=== PATIENT | female | born 1990 | race Caucasian/White ===

== ENCOUNTER → 2016-03-08 | Outpatient (CLI) | payer BC ==
[~2016-03-08] MED LIST: HYDR1INJ12; PRENTAB26 PO
== END | disposition home or self-care (01) ==
LOC: C.PAPS 14:21
PROVIDERS: ATTEND Obstetrics & Gynecology
DX: Z01.419 Encounter for gynecological examination (general) (routine) without abnormal findings (principal)

== ENCOUNTER → 2016-04-26 | Outpatient (CLI) | payer BC ==
[2016-04-26 16:27] LABS: URINE APPEARANCE CLEAR (CLEAR); URINE BILIRUBIN NEG (NEG); URINE COLOR YELLOW; URINE EPITHELIAL CELL AUTO 20-30 /lpf (0-5); URINE NITRITE NEG (NEG); URINE PH 6.5 (4.5-7.5); URINE SPECIFIC GRAVITY 1.005 (1.000-1.030); UROBILINOGEN NEG (NEG)
[2016-04-26 16:29] LABS: MANUAL MICROSCOPIC REQUIRED? NO; REVIEW REQ? NO
== END | disposition home or self-care (01) ==
LOC: C.LABSPEC 15:46
PROVIDERS: ATTEND Obstetrics & Gynecology
DX: O09.219 Supervision of pregnancy with history of pre-term labor, unspecified trimester (principal); Z3A.00 Weeks of gestation of pregnancy not specified

== ENCOUNTER → 2016-05-03 | Outpatient (CLI) | payer BC ==
[2016-05-06 11:26] LABS: CHLAMYDIA TRACH RNA*** NOT DETECTED (NOT DETECTED); GC (NEIS GONORRHOEAE)RNA** NOT DETECTED (NOT DETECTED)
== END | disposition home or self-care (01) ==
LOC: C.LABSPEC 14:17
PROVIDERS: ATTEND Obstetrics & Gynecology
DX: O09.219 Supervision of pregnancy with history of pre-term labor, unspecified trimester (principal)

== ENCOUNTER → 2016-09-17 | Outpatient (CLI) | payer BC ==
[2016-09-17 12:52] LABS: URINE APPEARANCE CLEAR (CLEAR); URINE BILIRUBIN NEG (NEG); URINE COLOR YELLOW; URINE EPITHELIAL CELL AUTO >30 /lpf (0-5); URINE NITRITE NEG (NEG); URINE SPECIFIC GRAVITY 1.008 (1.000-1.030); UROBILINOGEN NEG (NEG)
[2016-09-17 13:01] LABS: MANUAL MICROSCOPIC REQUIRED? NO; REVIEW REQ? YES
== END | disposition home or self-care (01) ==
LOC: C.LABSPEC 11:25
PROVIDERS: ATTEND Obstetrics & Gynecology
DX: O09.212 Supervision of pregnancy with history of pre-term labor, second trimester (principal)

== ENCOUNTER → 2016-11-13 | Outpatient (CLI) | payer BC | END | disposition home or self-care (01) | LOC: C.LABSPEC 11:02 | PROVIDERS: ATTEND Obstetrics & Gynecology | DX: O24.410 Gestational diabetes mellitus in pregnancy, diet controlled (principal) ==

== ENCOUNTER 2016-11-16 20:36 | Inpatient (IN) | payer BC ==
[~2016-11-16] VITALS: Ht 162.6 cm; Wt 70.0 kg
[2016-11-16 22:07] VITALS: Ht 162.6 cm; Wt 70.0 kg
[2016-11-16] MEDS ORDERED: PRENTAB26 PO (22:09)
[2016-11-16] MEDS ORDERED: HYDR1INJ12 (22:10)
[2016-11-16] MEDS ORDERED: LACTATED RINGER'S 1000ML 1,000 ML IV SCH (23:16)
[2016-11-16] MEDS ORDERED: LACTATED RINGER'S 1000ML 1,000 ML IV PRN (23:16)
[2016-11-16] MEDS ORDERED: LACTATED RINGER'S 1000ML 500 ML IV PRN (23:18)
[2016-11-16] MEDS ORDERED: BETAMETH SOD PHOS/ACETATE IA 6 MG/ML IM ONE (23:30)
[2016-11-16] MEDS ORDERED: OXYTOCIN 30 UNITS/500ML NSS IV PRN (23:30)
[2016-11-16 23:41] LABS: BASO % 0.2 %; BASO ABS # 0.02 K/uL (0-0.2); COMPLETE YES; HEMATOCRIT 35.7 % (37-47); IG% 0.7 %; LYMPH % 22.9 %; LYMPH ABS # 2.01 K/uL (1.2-3.4); MEAN CELL VOLUME 98.3 fL (80-100); MEAN CORPUSCULAR HEMOGLOBIN 33.9 pg (25-34); MEAN CORPUSCULAR HGB CONC 34.5 g/dl (32-36); MEAN PLATELET VOLUME 9.5 fL (7.4-10.4); MONO % 7.1 %; NEUT % 67.1 %; PLATELET COUNT 231 K/uL (130-400); RED BLOOD COUNT 3.63 M/uL (4.2-5.4); WHITE BLOOD COUNT 8.79 K/uL (4.8-10.8)
[2016-11-17 00:41] LABS: URINE APPEARANCE CLOUDY (CLEAR); URINE BILIRUBIN NEG (NEG); URINE COLOR YELLOW; URINE NITRITE NEG (NEG); URINE SPECIFIC GRAVITY 1.014 (1.000-1.030); UROBILINOGEN NEG (NEG)
[2016-11-17 00:44] LABS: MANUAL MICROSCOPIC REQUIRED? NO; REVIEW REQ? NO
[2016-11-17] MEDS ORDERED: FENTANYL 2MCG/ML ROPIV 1.25MG/ML 100ML BAG EPI ONE (06:10)
[2016-11-17] MEDS ORDERED: BUPIVACAINE 0.25% 30 ML VIAL ONE (06:10)
[2016-11-17] MEDS ORDERED: EpHEDrine SULFATE INJ 50 MG/ML AMP ONE (06:10)
[2016-11-17] MEDS ORDERED: FENTANYL CITRATE INJ 50 MCG/1 ML 2 ML VIAL ONE (06:11)
[2016-11-17] MEDS ORDERED: LACTATED RINGER'S 1000ML 500 ML IV PRN (06:56)
[2016-11-17] MEDS ORDERED: NALOXONE HCL INJ 1 MG in SODIUM CHLORIDE 0.9% 1000ML 1,000 ML IV PRN (06:56)
[2016-11-17] MEDS ORDERED: DiphenhydrAMINE HCL 50 MG/ML VIAL IV PRN (07:00)
[2016-11-17] MEDS ORDERED: ONDANSETRON INJ 2 MG/ML 2 ML VIAL IV PRN (07:00)
[2016-11-17] MEDS ORDERED: FENTANYL 2MCG/ML ROPIV 1.25MG/ML 100ML BAG EPI PRN (07:00)
[2016-11-17] MEDS ORDERED: NALBUPHINE HCL INJ 10 MG/ML AMP IV PRN (07:00)
[2016-11-17] MEDS ORDERED: EpHEDrine SULFATE INJ 50 MG/ML AMP IV PRN (07:00)
[2016-11-17] MEDS ORDERED: NALOXONE HCL INJ 0.4 MG/1 ML VIAL/CARP IV PRN (07:00)
--- NOTE | 2016-11-17 09:13 | Vaginal Delivery Summary ---
Vaginal Delivery Summary The patient dilated to complete and pushed over 1 contraction to deliver a viable female Apgars 8 and 9 via over an intact perineum. Mouth and nose bulb suctioned at the perineum and loose nuchal cord 1 reduced. Shoulders and body delivered with ease. vigorous and crying at . The cord was clamped at 30 seconds of life and then to maternal abdomen where the cord was doubly clamped and cut. Placenta delivered spontaneously and intact, 3 vessel cord. Hemostasis achieved with dilute Pitocin and uterine massage. Cervix and sulci intact. EBL 300 cc's. Mother and baby stable in recovery.
[2016-11-17] MEDS ORDERED: BENZOCAINE 20% AER SPR 82.5 GM CAN EXT PRN (09:15)
[2016-11-17] MEDS ORDERED: MISOPROSTOL 200 MCG TAB PR SCH (09:15)
[2016-11-17] MEDS ORDERED: DIPHTHERIA/TETANUS/PERTUSSIS 0.5 ML SYR/VIAL IM. ONE (09:15)
[2016-11-17] MEDS ORDERED: OXYTOCIN 30 UNITS/500ML NSS IV PRN (09:15)
[2016-11-17] MEDS ORDERED: SUPERCREAM 0.870 % 15GM JAR EXT PRN (09:15)
[2016-11-17] MEDS ORDERED: ACETAMINOPHEN/CODEINE 300/30MG TAB PO PRN ×2 (09:15)
[2016-11-17] MEDS ORDERED: IBUPROFEN 600 MG TAB PO PRN (09:15)
[2016-11-17] MEDS ORDERED: LANOLIN OINT EXT PRN ×2 (09:15)
[2016-11-17] MEDS ORDERED: ACETAMINOPHEN 325 MG TAB PO PRN (09:15)
[2016-11-17] MEDS ORDERED: HYDROCORTISONE ACETATE 25 MG SUPP PR PRN (09:15)
--- NOTE | 2016-11-17 09:37 | Anesthesia Procedure Note ---
Anesthesia Epidural Removal Nt Date & Time Nov 17, 2016 at 09:37 Vital Signs Pain Intensity: 0.0 Notes Mental Status: alert / awake / arousable, participated in evaluation Nausea / Vomiting: adequately controlled Pain: adequately controlled Airway Patency, RR, SpO2: stable & adequate BP & HR: stable & adequate Hydration State: stable & adequate Neuraxial Anesthesia: was administered Anesthetic Complications: no major complications apparent, pt satisfied with anesthetic care Epidural: removed without complications, with tip intact
[2016-11-17] MEDS ORDERED: OXYTOCIN INJ 20 UNITS in LACTATED RINGER'S 1000ML 1,000 ML IV SCH (10:00)
[2016-11-17 11:30] VITALS: BP 120/64; PULSE 83; TEMP 36.9; O2SAT 96
[2016-11-17 15:30] VITALS: BP 109/76; PULSE 71; TEMP 36.8
[2016-11-17 19:45] VITALS: BP 115/74; PULSE 68; TEMP 36.6
[2016-11-17] MEDS: DOCUSATE SODIUM 100 MG CAP PO SCH (20:00)
[2016-11-17 23:10] VITALS: BP 103/65; PULSE 75; TEMP 37; O2SAT 96
[2016-11-18 03:15] VITALS: BP 103/68; PULSE 80; TEMP 36.9
--- NOTE | 2016-11-18 06:27 | Progress Note ---
Subjective Nov 18, 2016. Subjective conversation w/ patient, physical exam, chart review, lab review Ambulation: ambulating normally Voiding: no voiding problems Passing Gas: Yes Diet Tolerance: Regular Diet Lochia: Small Feeding Type: Breast Feeding Pain: Mild low abd pain and cramping Comment: Found pt awake, sitting up in bed, smiling, says she feels good, denies overnight events, and denies acute concerns. Review of Systems Constitutional: No fever, No chills Respiratory: No cough, No shortness of breath Cardiac: No chest pain, No edema Abdomen: No nausea, No vomiting, No diarrhea Female : No dysuria Objective Vital Signs Date Time Temp Pulse Resp B/P (MAP) Pulse Ox O2 Delivery O2 Flow Rate FiO2 11/18/16 03:15 36.9 80 18 103/68 (80) Room Air 11/17/16 23:10 37.0 75 18 103/65 (78) 96 Room Air 11/17/16 23:10 96 Room Air 11/17/16 19:45 36.6 68 18 115/74 (88) Room Air 11/17/16 15:30 Room Air 11/17/16 15:30 36.8 71 18 109/76 (87) Room Air 11/17/16 11:30 36.9 83 18 120/64 (82) 96 Room Air Physical Exam General Appearance: WELL-APPEARING, WD/WN, NO APPARENT DISTRESS Respiratory/Chest: lungs clear, normal breath sounds Cardiovascular: regular rate, rhythm, no edema, no murmur Abdomen: normal bowel sounds, non tender, soft Fundus: Firm, Non-Tender, Relation to Umbilicus (one down) Extremities: normal range of motion, no pedal edema, no calf tenderness Laboratory Results Last 24 Hours Test 11/17/16 07:01 Bedside Glucose 126 mg/dl Assessment and Plan Post- Day#: 1 Continue Routine Care: 26F s/p vaginal delivery, now PPD #1. - Blood type AB positive. GBS negative. Rubella immune. - Vital signs reviewed and stable. - Pain controlled without PO meds thus far. - No leg swelling or tenderness on calf palpation. Encourage ambulation. - Encourage breast feeding. - Hemoglobin pre-delivery 12.3. Bleeding has improved. Continue to monitor clinically. - Continue routine post-vaginal delivery care. - Pt agreed with above plan, all current questions answered. Diego Lyle MD, PGY1 Highway Commissioner Physician Supervision Note: I was present with Dr. Lyle during the history and exam. I discussed the case with the resident and agree with the findings and plan as documented in the note. Any exceptions or clarifications are listed here: no complaints. likely desires to go home. f/u 6 wks reviewed, instructions reviewed. Documented By: Tala Farley Resident Tracking Resident Involvement: Resident Care Provided Care Provided: OB Delivery (OB rounds)
[2016-11-18 07:20] VITALS: BP 101/66; PULSE 70; TEMP 36.6; O2SAT 98
--- NOTE | 2016-11-18 07:47 | Discharge Instructions ---
Discharge Instructions Date of Service Nov 18, 2016. Admission Reason for Admission: 36 Weeks Gestation Of Discharge Discharge Diagnosis / Problem: after delivery Discharge Goals Goal(s): Routine recovery after delivery Medications Continue Dispensed Medications: supercream, dermaplast, tucks, lansinoh Activity Recommendations Activity Limitations: as noted below . Instructions / Follow-Up Instructions / Follow-Up ACTIVITY RECOMMENDATIONS: * Gradual return to full activity over the next 2-3 weeks. * No lifting - nothing heavier than baby over the next 2-3 weeks. * Do not engage in vigorous exercise, sexual activity or sports until cleared by your physician. * Do not drive or operate any motorized equipment until cleared by your physician. * You may shower/bathe daily. MEDICATIONS: For discomfort or pain, you may use Acetaminophen (Tylenol), Ibuprofen (Advil), or Naproxen (Aleve) following the package directions. For constipation you may use Colace following the package directions. BREAST CARE: If you are not breast feeding: * Wear a supportive bra 24 hours a day for one to two weeks. * Avoid stimulating your breasts and nipples as much as possible during the first few weeks after delivery. * When taking a shower, have the warm water hit your back, not breasts. * When your breasts feel full, apply ice packs. Usually three to four times a day helps ease the discomfort. * Take a mild pain medication (Tylenol / Motrin) when you are uncomfortable. If breast feeding: * Use breast milk to lubricate nipples. Lansinoh cream may be used for sore nipples. You do not need to remove cream prior to breast feeding. If using a different brand of cream, check the label for directions regarding removal of cream prior to nursing. * Wear a supportive bra. * If having problems with breasts or breast feeding, call a integrity consultant or your health care provider. EPISIOTOMY CARE: After delivery, if you have an episiotomy (stitches), the following steps will ease discomfort and aid healing. * For the first 24 hours after delivery, place ice packs next to your episiotomy to help reduce swelling. * After the first 24 hour-period, sitz baths, either portable or in the tub, are suggested. A shower with a shower arm sprayed over the episiotomy may be comforting. * Milly care should be done after each voiding and bowel movement. Squirt warm water from a plastic bottle over the perineum (region of the body between the anus and urinary opening) and pat dry. * Use Dermoplast to ease discomfort. Shake container. [place] directly over the episiotomy. Place a Tucks on a clean sanitary pad next to your episiotomy. SPECIAL CARE INSTRUCTIONS: When you are discharged from the hospital, it is important for you to follow the instructions listed below: * During the first week at home, you should be able to care for yourself and your baby. In addition, the usual light household activities are encouraged. * Limit your activities to the way you feel. Do not try to clean the house or move furniture. Be sensible. * If you actively engage in sports and have done so up until the time of your delivery, you may resume these activities as soon as you feel able. This may take up to one month or even longer. Use good judgment. * Continue to take your vitamins for at least six weeks after the of your baby. * Your diet need not be limited unless you were on a special diet before your delivery. Breast-feeding mothers need around 2500 calories per day and at least 64-80 ounces of fluid per day (8 to 10 glasses). * You should eat foods from the four major food groups. Crash diets or fad diets are to be avoided. Eating lean meats, fresh fruits and vegetables, low-fat dairy products, high fiber foods and a regular exercise program, will help you get back to your pre- weight without putting your health at risk. * Constipation is sometimes a problem after delivery. Take a mild laxative as needed. If breast feeding, Milk of Magnesia is acceptable to use. You may use a suppository or Fleets enema if no episiotomy. * A daily shower or tub bath is suggested. Be sure to thoroughly and gently dry the perineum. * A bloody vaginal discharge will usually continue until around four weeks post . A small amount of bleeding may continue for as long as six weeks. Vaginal discharge changes from the bright red bleeding after delivery to pink then brownish and finally yellowish-pink before becoming white and disappearing. * Bleeding may increase with activity. Your first period may come in 4-8 weeks. If you are breast feeding, your period may be delayed even longer. * [place] (sex) can begin whenever both you and your partner feel comfortable and do not have any form of genital infection. It is recommended that you wait at least six weeks for internal and external healing to occur. If you have questions, please talk to your health care practitioner. A condom should be used to prevent infection and . * Foreplay, gentle intercourse and lubrication is very important the first several times to prevent pain. A water-based lubricant such as K-Y jelly or Astroglide may be used. * If you have RH negative blood and your baby is RH positive, you will receive RHOGAM by injection prior to discharge. The nurse will give you a card to keep with you that has the date and place that you received RHOGAM after delivery. * During your care, you had a Rubella screen done to check for the presence of rubella antibodies in your blood. If your test was negative, you will receive a Rubella vaccine prior to discharge. This vaccine may cause a fever, soreness at the injection site and flu-like symptoms. If these symptoms persist, notify your health care practitioner. is not advised for one month after a Rubella vaccine. * Verbalizes understanding of car seat law as reviewed with patient nursing. * Car Seat hand-out given and reviewed with patient by nursing. * Shaken baby information reviewed with patient by nursing. Call you doctor if: * Heavy bleeding (saturating several pads an hour) or passing clots the size of your fist. * A fever >101 degrees F (38.3 degrees C) on two occasions four hours apart and /or chills. * Unusual pain in the pelvic or vaginal areas. * "Baby Blues" lasting longer than two weeks. If you have any questions or concerns, call your health care practitioner at . FOLLOW UP VISIT: * Please call the office at to schedule a 6 week examination. It is important you keep this appointment. It is important for you to make arrangements for either yearly or twice yearly check-ups thereafter. Current Hospital Diet Patient's current hospital diet: Regular OB Diet Discharge Diet Recommended Diet: Regular Diet Pending Studies Studies pending at discharge: no Medical Emergencies . Who to Call and When: Medical Emergencies: If at any time you feel your situation is an emergency, please call [phone] immediately. . Non-Emergent Contact Non-Emergency issues call your: Bridge Tender . . "Provider Documentation" section prepared by Tala Farley. . VTE Core Measure Inpt VTE Proph given/why not?: Treatment not indicated
[2016-11-18] MEDS: DOCUSATE SODIUM 100 MG CAP PO SCH ×2 (07:50→20:23)
[2016-11-18 15:15] VITALS: BP 118/82; PULSE 72; TEMP 36.7
[2016-11-18 23:00] VITALS: BP 106/70; PULSE 67; TEMP 36.4; O2SAT 97
--- NOTE | 2016-11-19 06:30 | Progress Note ---
Subjective Nov 19, 2016. Subjective conversation w/ patient, physical exam, chart review, lab review Ambulation: ambulating normally Voiding: no voiding problems Passing Gas: Yes Diet Tolerance: Regular Diet Lochia: Small Feeding Type: Breast Feeding Pain: Rare cramping Comment: Found pt sitting up, comfortable, denies any acute concerns. Review of Systems Constitutional: No fever, No chills Respiratory: No cough, No shortness of breath Cardiac: No chest pain Abdomen: No nausea, No vomiting, No diarrhea Female : No dysuria Objective Vital Signs Date Time Temp Pulse Resp B/P (MAP) Pulse Ox O2 Delivery O2 Flow Rate FiO2 11/18/16 23:00 97 Room Air 11/18/16 23:00 36.4 67 18 106/70 (82) 97 Room Air 11/18/16 15:30 Room Air 11/18/16 15:15 36.7 72 18 118/82 (94) 11/18/16 07:20 98 Room Air 11/18/16 07:20 36.6 70 20 101/66 (78) 98 Room Air Physical Exam General Appearance: WELL-APPEARING, WD/WN, NO APPARENT DISTRESS Respiratory/Chest: lungs clear, normal breath sounds Cardiovascular: regular rate, rhythm, no murmur Abdomen: normal bowel sounds, non tender, soft Fundus: Firm, Non-Tender, Relation to Umbilicus (approx two down) Extremities: normal range of motion, no calf tenderness, + pedal edema ( Minimal bilaterally) Assessment and Plan Post- Day#: 2 Continue Routine Care: 26F s/p vaginal delivery, now PPD #2. - Blood type AB positive. GBS negative. Rubella immune. - Vital signs reviewed and stable. - Pain controlled without PO meds thus far. - No leg swelling or tenderness on calf palpation. Encourage ambulation. - Encourage breast feeding. - Hemoglobin pre-delivery 12.3. Bleeding improving. Continue to monitor clinically. - Continue routine post-vaginal delivery care. - Pt agreed with above plan, all current questions answered. Diego Lyle MD, PGY1 Air Motor Repairer Physician Supervision Note: I interviewed and examined the patient. Discussed with Dr. Lyle and agree with findings and plan as documented in the note. Any exceptions or clarifications are listed here: [None] Documented By: Je Wild Resident Tracking Resident Involvement: Resident Care Provided Care Provided: OB Delivery (OB rounds)
[2016-11-19 08:15] VITALS: BP 110/70; PULSE 72; TEMP 36.7; O2SAT 98
[2016-11-19] MEDS: DOCUSATE SODIUM 100 MG CAP PO SCH (08:38)
[2016-11-19 11:35] VITALS: BP_DIAS 70; PULSE 72; TEMP 36.7
== END 2016-11-19 11:35 | disposition home or self-care (01) | DRG 775 ==
LOC: C.OPB 20:36 → C.LD 20:36 → C.OPB 23:17 → C.LD 23:17 → C.OBG 11-17 11:57
PROVIDERS: ADMIT Obstetrics & Gynecology; ATTEND Obstetrics & Gynecology
PROC: 10E0XZZ Delivery of Products of Conception, External Approach (ICD-10-PCS; principal; 2016-11-17)
DX: O60.14X0 Preterm labor third trimester with preterm delivery third trimester, not applicable or unspecified (principal); O69.81X0 Labor and delivery complicated by cord around neck, without compression, not applicable or unspecified; O24.420 Gestational diabetes mellitus in childbirth, diet controlled; Z37.0 Single live birth; Z3A.36 36 weeks gestation of pregnancy